=== PATIENT | female | born 1945 | race African-American/Black ===

== ENCOUNTER → 2016-12-08 | Outpatient (CLI) | payer OTHER ==
[~2016-12-08] MED LIST: ANASTROZOLE1 MG PO; CALCIUM 600 +1 EAC1 PO; DIAZEPAM 5 MG5 M1 PO; FISH OIL 1,0001 EAC5 PO; MULTIVITAMINS PO; PRILOSEC 20 MG20 MG PO; PROAIR HFA8.5 GM INH; PROBIOTIC1 EACH PO
== END ==
LOC: RAD 03:51
DX: Z12.31 Encounter for screening mammogram for malignant neoplasm of breast (principal)

== ENCOUNTER → 2017-10-17 | Outpatient (CLI) | payer OTHER | LOC: RAD 13:05 | DX: M81.0 Age-related osteoporosis without current pathological fracture (principal); Z78.0 Asymptomatic menopausal state ==

== ENCOUNTER → 2018-12-18 | Outpatient (CLI) | payer OTHER | LOC: CARD 01:54 → NUC 01:54 | DX: M81.0 Age-related osteoporosis without current pathological fracture (principal); R92.8 Other abnormal and inconclusive findings on diagnostic imaging of breast; Z85.3 Personal history of malignant neoplasm of breast ==

== ENCOUNTER → 2019-12-20 | Outpatient (CLI) | payer OTHER | LOC: RAD 08:12 | PROVIDERS: ATTEND Neuromusculoskeletal Medicine & OMM | DX: Z12.31 Encounter for screening mammogram for malignant neoplasm of breast (principal) ==

== ENCOUNTER → 2019-12-31 | Outpatient (CLI) | payer OTHER | LOC: BC 11:51 → ULTRA 13:21 | PROVIDERS: ATTEND Neuromusculoskeletal Medicine & OMM | DX: N60.01 Solitary cyst of right breast (principal); N63.10 Unspecified lump in the right breast, unspecified quadrant ==

== ENCOUNTER → 2021-01-01 | Outpatient (CLI) | payer OTHER | LOC: RAD 09:50 → ULTRA 09:50 → BC 12:49 | PROVIDERS: ATTEND Neuromusculoskeletal Medicine & OMM | DX: M81.0 Age-related osteoporosis without current pathological fracture (principal); N63.10 Unspecified lump in the right breast, unspecified quadrant; R92.8 Other abnormal and inconclusive findings on diagnostic imaging of breast; M85.88 Other specified disorders of bone density and structure, other site ==